=== PATIENT | male | born 1950 | race Caucasian/White ===

== ENCOUNTER → 2018-05-10 15:17 | Outpatient (CLI) | payer MEDICARE, OTHER | END | disposition home or self-care (01) | LOC: D.CT 15:17 | DX: I71.2 Thoracic aortic aneurysm, without rupture (principal) ==

== ENCOUNTER 2019-02-04 22:43 | Inpatient (IN) | payer MEDICARE, OTHER ==
[~2019-02-04] VITALS: Ht 195.6 cm; Wt 134.5 kg
--- NOTE | ~2019-02-04 | HEMODYNAMI ---
PATIENT:CARLIE CAMARA MEDICAL RECORD: [id number] : 50 [facility] ADMISSION DATE: 02/05/19 Generatedon:02/06/20199:56 Patient name: CARLIE CAMARA Patient #: [id number] SSN: DO B: 1950 Date of study: 02/06/2019 Page: Of Hemodynamic Procedure Report Patient Data Patient Demographics Procedure consent was obtained First Name: CARLIE Gender: Male Last Name: JAX : 1950 Middle Initial: M Age: 68 year(s) Patient #: [id number] Race: Unknown Additional ID: [id number] Contact details [address]: [address] [place] [address] [place] State: [place] City: [place] Zip code: [address] Past Medical History Allergies Allergen Reaction Date Comments Reported Sulfa drugs 02/06/2019 Antibiotics 02/06/2019 Admission Admission Data Admission Date: 02/05/2019 Admission Time: 0:36 Admit Source: Other Room #: D.2107 Weight (lbs.): 297 Weight (kg.): 134.72 Lab Results Lab Result Date: 02/06/2019 Lab Result Time: 0:00 Biochemistry Name Units Result Min Max BUN mg/dl 9 --(*---)-- 7 18 Creatinine mg/dl 0.8 --(-*--)-- 0.6 1.3 eGFR ml/min 90 --(*---)-- 90 120 AM eGFR ml/min 90 --(*---)-- 90 120 NONAFRICAN CBC Name Units Result Min Max Hemoglobin g/dl 13.6 --(*---)-- 13.5 17.5 Procedure Procedure Types Cath Procedure Diagnostic Procedure LHC LHC w/Coronaries w/Grafts PCI Procedure Coronary Stent Coronary Stent Initial Procedure Description Procedure Date Procedure Date: 02/06/2019 Procedure Start Time: 9:30 Procedure End Time: 9:52 Procedure Staff Name Function Wilbert Pool MD Performing Physician Joseluis Cabrera RT Monitor Mohit Leger RN Nurse Johnny Miguel RT Scrub Yecenia Mandujano RT Scrub Procedure Data Cath Procedure Fluoroscopy Diagnostic fluoroscopy Total fluoroscopy Time: 8.4 time: 8.4 min min Diagnostic fluoroscopy Total fluoroscopy dose: dose: 2168 mGy 2168 mGy Contrast Material Contrast Material Type Amount (ml) Isovue 370 205 Entry Location Entry Primary Successful Side Size Upsize Upsize Entry Closure Succes sful Closure Location (Fr) 1 (Fr) 2 (Fr) Remarks Device Remarks Femoral Right 6 Fr Exoseal artery Short Diagnostic catheters Device Type Used For End Catheter Placement MULTIPACK Pigtail 5 Fr LV Angiography catheter MULTIPACK JL 4.0 5Fr Left Coronary catheter Angiography DIAGNOSTIC JL 5 5Fr Left Coronary catheter ([id number]) Angiography MULTIPACK 3DRC 5Fr SVG Angiography catheter DIAGNOSTIC AR2 MOD 5 Fr SVG Angiography catheter ([id number]) Procedure Complications No complications Procedure Medications Medication Administration Route Dosage 0.9% NaCl I.V. 100 ml/hr Heparin Flush Bag added to field 2 bags (1000units/500ml NS) Oxygen etCO2 Nasal cannula 2 l/min Lidocaine 2% added to field 20 Versed I.V. 2 mg Fentanyl I.V. 100 mcg Versed I.V. 1 mg Versed I.V. 1 mg Heparin Bolus I.V. 5000 units Hemodynamics Rest HGB: 13.6 (g/dl) Heart Rate: 75 (bpm) Snapshots Pre Cath Intra NCS Post Cath Vital Signs Time Heart Resp SPO2 etCO2 NIBP (mmHg) Rhythm Pain Sedation Rate (ipm) (%) (mmHg) Status Level (bpm) 9:18:23 68 20 98 32.2 165/93(135) NSR 0 (11) 10(A) , No pain 9:22:47 69 16 98 28.4 157/86(139) NSR 0 (11) 10(A) , No pain 9:27:11 71 12 96 0 148/81(139) NSR 0 (11) 10(A) , No pain 9:31:29 85 14 97 32.9 152/87(134) NSR 0 (11) 10(A) , No pain 9:36:40 69 13 94 0 149/83(119) NSR 0 (11) 9(A) , No pain 9:40:59 75 18 97 36.7 153/87(125) NSR 0 (11) 9(A) , No pain 9:45:17 83 19 97 32.2 153/88(123) NSR 0 (11) 9(A) , No pain 9:49:31 83 18 98 34.5 163/91(133) NSR 0 (11) 10(A) , No pain Medications Time Medication Route Dose Verified Delivered Reason Notes Effectiveness by by 9:18:12 0.9% NaCl I.V. 100 Mohit Mohit Per physician ml/hr Africa Leger RN RN 9:18:39 Heparin Flush added 2 Mohit Mohit used for Bag to bags Africa Leger procedure (1000units/500ml field RN RN NS) 9:19:23 Oxygen etCO2 2 Mohit Mohit for low 02 sats Nasal l/min Africa Leger cannula RN RN 9:19:38 Lidocaine 2% added 20ml Mohit Mohit for local to vial Africa Leger anesthetic field RN RN 9:20:36 Versed I.V. 2 mg Mohit Mohit for sedation Africa Leger RN RN 9:20:45 Fentanyl I.V. 100 Mohit Mohit for sedation mcg Africa Leger RN RN 9:27:42 Versed I.V. 1 mg Mohit Mohit for sedation Africa Leger RN RN 9:29:24 Versed I.V. 1 mg Mohit Mohit for sedation Africa Leger RN RN 9:39:25 Heparin Bolus I.V. 5000 Mohit Mohit for units Africa Leger anticoagulation RN special events assistant Log Time Note 8:45:59 Mohit Leger RN sent for patient. Start room use. 8:58:36 Admit Source: Other 8:59:43 Procedure status Elective 9:00:35 Lab Result : Hemoglobin 13.6 g/dl 9:00:35 Lab Result : BUN 9 mg/dl 9:00:35 Lab Result : eGFR NONAFRICAN 90 ml/min 9:00:35 Lab Result : Creatinine 0.8 mg/dl 9:00:35 Lab Result : eGFR AM 90 ml/min 9:07:29 Patient Weight : 297 lbs 9:07:34 Time tracking: Regular hours (M-F 7:00 - 5:00) 9:07:38 Patient received from Med II to CCL 2 Alert and oriented. Tansferred to table in Supine position. 9:07:41 Signed procedure consent form obtained from patient. 9:07:43 Warm blankets applied, and louise hugger turned on for patient comfort. 9:07:43 Correct patient and procedure confirmed by team. 9:07:51 ECG and BP/O2 sat monitors applied to patient. 9:17:11 Baseline sample Acquired. 9:17:11 Vital chart was started 9:17:14 Rhythm: sinus rhythm 9:17:15 Full Disclosure recording started 9:17:33 H&P Date Dictated: 02/05/2019 Within 30 days and on chart.. 9:17:34 Pre-procedure instructions explained to patient. 9:17:35 Pre-op teaching completed and patient verbalized understanding. 9:17:39 Family in patients room. 9:17:40 Patient NPO since Midnight. 9:17:50 Patient allergic to Sulfa drugs 9:18:03 Patient allergic to Antibiotics 9:18:05 Is the patient allergic to Iodine/contrast media? No. 9:18:12 0.9% NaCl 100 ml/hr I.V. was administered by Mohit Leger RN; Per physician; 9:18:17 Is patient on blood thinner?Yes 9:18:22 ACC The patient was administered the following blood thiners within the last 24 hours: ACCPlavix 9:18:33 pt was loaded 9:18:36 Patient diabetic? No. 9:18:38 If diabetic: On Metformin? No 9:18:39 Heparin Flush Bag (1000units/500ml NS) 2 bags added to field was administered by Mohit Leger RN; used for procedure; 9:18:39 ----Pre-sedation anethsthesia assessment.---- 9:18:41 Previous problem with sedation/anesthesia? No ? 9:18:43 Snore? Yes 9:18:45 Sleep apnea? No 9:18:46 Deviated septum? No 9:18:51 Opens mouth fully? Yes 9:18:53 Sticks out tongue? Yes 9:19:01 Airway obstruction? No ? 9:19:03 Dentures? No ? 9:19:05 Pre procedure: right dorsailis pedis pulse 2+ Normal; easily identifiable; not easily obliterated 9:19:08 Patient pain scale 0/10 ?. 9:19:15 IV patent on arrival in right forearm with 0.9% NaCl at KVO. 9:19:22 Lab results completed and on chart. 9:19:23 Oxygen 2 l/min etCO2 Nasal cannula was administered by Mohit Leger RN; for low 02 sats; 9:19:26 Right groin area was prepped with chlora-prep and draped in sterile fashion 9:19:27 Alarms reviewed by R. N. 9:19: Sharps counted by scrub and verified by R.N. 9:19:32 Physician arrived 9::33 --------ALL STOP TIME OUT------ 9::33 Final Timeout: patient, procedure, and site verified with staff and physician. All members of the team are in agreement. 9:19:36 Right groin site verified by team. 9:19:38 Lidocaine 2% 20ml vial added to field was administered by Mohit Leger RN; for local anesthetic; 9:19:39 Fire Safety Assessment: A--An alcohol-based skin anteseptic being used preoperatively., C--Open oxygen or nitrous oxide is being used., D--An ESU, laser, or fiber-optic light is being used. 9:19:43 Physical assessment completed. ASA score P 2 - A patient with mild systemic disease as per Wilbert Pool MD. 9:19:46 1) 90+ Normal kidney functon but urine findings or structural abnormalities or genetic trait point to kidney disease. 9:19:52 Maximum allowable contrast does (3.7 X eGFR X 0.75)249.75 ml. 9:19:57 Sedation plan: IV Moderate Sedation Medication:Versed, Fentanyl 9:20:15 Use device set Femoral Dx 9:20:17 ACIST Syringe (48804) opened to sterile field. 9:20:18 Bag Decanter (2002) opened to sterile field. 9:20:18 Medline Cath Pack ([id number]) opened to sterile field. 9:20:20 ACIST Hand Control (08579) opened to sterile field. 9:20:20 ACIST Manifold (86838) opened to sterile field. 9:20:21 DIAGNOSTIC Multipack 5Fr catheter set (AM9766) opened to sterile field. 9:20:23 Tegaderm 4 x 4 (1626W) opened to sterile field. 9:20:28 EMERALD Guide Wire (502-490) opened to sterile field. 9:20:34 SHEATH 6FR [place] (VLS346) opened to sterile field. 9:20:36 Versed 2 mg I.V. was administered by Mohit Leger RN; for sedation; 9:20:45 Fentanyl 100 mcg I.V. was administered by Mohit Leger RN; for sedation; 9:27:42 Versed 1 mg I.V. was administered by Mohit Leger RN; for sedation; 9:29:21 Procedure started. 9:29:24 Versed 1 mg I.V. was administered by Mohit Leger RN; for sedation; 9:30:59 Local anesthetic to right femoral artery with Lidocaine 2% by Wilbert Pool MD.INITIAL ACCESS ONLY 9:31:07 A 6 Fr Short sheath was inserted into the Right Femoral artery 9:31:33 A MULTIPACK Pigtail 5 Fr catheter was advanced over the wire and used for LV Angiography. 9:31:36 LV angiography performed. 9:31:43 EF : 55 % 9:31:47 LV gram done using MAHMOOD 9:31:49 Catheter removed. 9:31:55 A MULTIPACK JL 4.0 5Fr catheter was advanced over the wire and used for Left Coronary Angiography. 9:32:06 Zero performed for pressure channel P1 9:32:19 Catheter removed. 9:32:39 A DIAGNOSTIC JL 5 5Fr catheter ([id number]) was advanced over the wire and used for Left Coronary Angiography. 9:32:44 LCA angiography performed. 9:33:40 Catheter removed. 9:33:55 INFLATOR Merit BasixCompak (YN8452) opened to sterile field. 9:34:03 CHOICE PT Extra Support 182cm wire ([id number]) opened to sterile field. 9:36:01 A MULTIPACK 3DRC 5Fr catheter was advanced over the wire and used for SVG Angiography. 9:36:24 TYLER to LAD angiography performed. 9:36:26 Catheter removed. 9:36:32 A DIAGNOSTIC AR2 MOD 5 Fr catheter (720649C) was advanced over the wire and used for SVG Angiography. 9:36:43 SVG to OM angiography performed. 9:37:16 SVG to RCA angiography performed. 9:37:36 RCA angiography performed. 9:38:19 SVG to Ramus angiography performed. 9:38:20 Catheter removed. 9:38:49 Pre PCI Site: Vein Graft Ramus has 99% stenosis. 9:39:02 GUIDE 6FR EBU 4.5 catheter ([id number]) opened to sterile field. 9:39:25 Heparin Bolus 5000 units I.V. was administered by Mohit Leger RN; for anticoagulation; 9:39:28 6 Fr EBU 4.5 guide catheter was inserted over the wire 9:39:42 Procedure type changed to Cath procedure, Diagnostic procedure, LHC, LHC w/Coronaries w/Grafts, PCI procedure, Coronary Stent, Coronary Stent Initial 9:39:54 CPTES wire advanced. 9:40:41 Wire removed. 9:41:50 FIELDER XT J 300cm guide wire ([id number]) opened to sterile field. 9:42:09 FIELDER wire advanced. 9:44:05 Inflate balloon Inflation number: 1 A EMERGE OTW 1.5 x 15 balloon ([id number]) was prepped and advanced across the Ramus 99, then inflated to 21 KETAN for 0:06 (min:sec) . 9:44:39 Stent catheter was removed intact over wire. 9:46:12 Balloon removed over the wire. 9:46:33 Inflate balloon Inflation number: 2 A EUPHORA 2.5 x 30 Balloon ([id number]) was prepped and advanced across the Ramus , then inflated to 23 KETAN for 0:14 (min:sec) . 9:46:49 Inflation number: 3 The EUPHORA 2.5 x 30 Balloon ([id number]) was reinflated across the Ramus , to 23 KETAN for 0:10 (min:sec) . 9:46:55 Balloon removed over the wire. 9:48:29 Place stent Inflation Number: 4 A KEREN RX 2.5 x 38 stent ([id number]) was prepped and advanced across the Ramus . The stent was deployed at 15 KETAN for 0:15 (min:sec) 0. 9:48:55 EXOSEAL 6Fr (EX600) opened to sterile field. 9:49:03 Stent catheter was removed intact over wire. 9:49:03 Wire removed. 9:49:04 Guide catheter removed. 9:49:12 Contrast amount:Isovue 370 205ml. 9:49:21 Sheath removed intact; hemostasis achieved with Exoseal to the Right Femoral artery. 9:49:23 Procedure ended.(Physican Out) 9:49:35 Fluoroscopy time 08.40 minutes. 9:49:42 Fluoroscopy dose: 2168 mGy 9:49:42 Flurop Dose total: 2168 9:49:43 Sharps counted by scrub and verified by R.N. 9:49:46 Insertion/operative site no bleeding no hematoma. 9:49:51 Post-op/insertion site Right Femoral artery dressed using a 4 x 4 and Tegaderm. 9:49:55 Post right femoral artery:stable 9:49:56 Post Procedure Pulses reassessed and unchanged 9:49:58 Post procedure: right dorsailis pedis pulse 2+ Normal; easily identifiable; not easily obliterated. 9:50:03 Post procedure rhythm: sinus rhythm 9:50:05 Post procedure instruction explained to patient.Patient verbalizes understanding. 9:50:06 Procedure and supply charges have been captured, reviewed, submitted and are correct. 9:50:38 Procedure Complication : No complications 9:52:02 Vital chart was stopped 9:52:03 See physician's report for complete and final results. 9:52:06 Report given to PCU. 9:52:10 Patient transfered to PCU with Bed. 9:52:12 Procedure ended. 9:52:12 Full Disclosure recording stopped 9:52:18 ACC-PCI Only Patient was given prescriptions, or instructed by Wilbert Pool MD to start/continue the following medications upon discharge: Plavix 9:52:20 End room use (Document Last) Intervention Summary Intervention Notes Time ActionType Lesion and Equipment Used Action# Pressure Duration Attributes 9:44:05 Inflate Ramus EMERGE OTW 1.5 1 21 00:06 balloon x 15 balloon ([id number]) 9:46:33 Inflate Ramus EUPHORA 2.5 x 2 23 00:14 balloon 30 Balloon ([id number]) 9:46:49 Reinflate Ramus EUPHORA 2.5 x 3 23 00:10 balloon 30 Balloon ([id number]) 9:48:29 Place stent Ramus KEREN RX 2.5 x 4 15 00:15 38 stent ([id number]) Device Usage Item Name Manufacture Quantity Catalog Number Hospital Part Current Minimal Lot# / Charge Number Stock Stock Serial# Code ACIST Syringe Acist 1 49419 606644 455681 642675 20 (16176) Medical Systems Inc Bag Decanter Microtek 1 2001S 996574 38053 725183 5 () Medical Inc. Medline Cath Medline 1 [id number] 051717 01868 901268 5 Pack ([id number]) ACIST Hand Acist 1 04831 969836 372653 163937 5 Control Medical (88911) Systems Inc ACIST Manifold Acist 1 78846 040316 643966 087282 5 (02085) Medical Systems Inc DIAGNOSTIC Cardinal 1 MH2060 260001 01165 396923 30 Multipack 5Fr Health catheter set (QS2323) Tegaderm 4 x 4 3M 1 1626W 737714 238291 737202 5 (1626W) EMERALD Guide Cardinal 1 502-455 765822 003569 857500 5 Wire (502-455) Health SHEATH 6FR Terumo 1 GSW231 663822 769988 143813 40 [place] (ZQS494) MULTIPACK Cardinal 1 213707 5 Pigtail 5 Fr Health catheter MULTIPACK JL Cardinal 1 684560 5 4.0 5Fr Health catheter DIAGNOSTIC JL Cardinal 1 [id number] 451305 843238 961578 5 5 5Fr catheter Health (531866V) INFLATOR Merit Merit 1 YG1334 813739 502921 847828 15 KidboxinDataPop (CX7987) CHOICE PT [place] 1 [id number] 132420 930059 799807 5 Extra Support Scientific 182cm wire (1703045O4) MULTIPACK 3DRC Cardinal 1 233456 5 5Fr catheter Health DIAGNOSTIC AR2 Cardinal 1 [id number] 745380 567805 323633 20 MOD 5 Fr Health catheter (818690I) GUIDE 6FR EBU Medtronic 1 [id number] 188363 09683 002947 0 4.5 catheter (HS7PQW65) FIELDER XT J Hsieh 1 [id number] 307235 548971 332235 5 300cm guide Vascular wire ([id number]) EMERGE OTW 1.5 [place] 1 [id number] 607474 542141 182708 5 [id number] x 15 balloon Scientific ([id number]) EUPHORA 2.5 x Medtronic 1 [id number] 336896 555081 081467 5 [id number] 30 Balloon ([id number]) KEREN RX 2.5 x Medtronic 1 [id number] 863862 0109130 913082 5 [id number] 38 stent ([id number]) EXOSEAL 6Fr Cardinal 1 EX600 764373 788061 565258 10 (EX600) Health Signature Audit [place] Stage Time Signature Unsigned Intra-Procedure 02/06/2019 Joseluis Cabrera RT(R) 9:56:02 AM Signatures Performing Physician : Signature : Wilbert Pool MD Date : Time : Monitor : Joseluis Cabrera RT Signature : Date : Time : Nurse : Mohit Leger Signature : RN Date : Time : [facility] [address] [facility] [address]
--- NOTE | ~2019-02-04 | CN ---
PATIENT NAME:CARLIE GARBER MEDICAL RECORD: [id number] : 50 LOCATION:D. D.2107 ADMIT DATE: 02/05/19 ACCOUNT: [id number] CONSULTING PHYSICIAN: OCTAVIO PICKARD MD REFERRING PHYSICIAN: EPHRAIM SAMANO MD DATE OF CONSULTATION: 02/05/2019 CARDIOLOGY CONSULT DIAGNOSES: 1. Non-Q-wave myocardial infarction. 2. Coronary artery disease. 3. Status post coronary bypass graft surgery. 4. Shortness of breath and dyspnea on exertion. 5. Hypertension. 6. Hyperlipidemia. HISTORY OF PRESENT ILLNESS: Mr. Garber presents with anginal chest discomfort as well as shortness of breath and dyspnea on exertion. It has been going on for 2 days, progressing in an unstable fashion. He did rule in for non-Q-wave myocardial infarction. He has a past history of coronary artery disease and coronary bypass graft surgery in 2000, 5 vessels. PHYSICAL EXAMINATION: GENERAL APPEARANCE: Well-nourished, well-developed, appears stated age. Level of distress, comfortable. PSYCHIATRIC: Mental status, alert, normal affect. Orientation, oriented to time, place and person. EYES: Lids and conjunctiva, noninjected. No discharge, no pallor. ENT: Lips, teeth, gums, normal dentition. Oropharynx, no cyanosis, no pallor. NECK: Carotid arteries, bilateral normal upstroke, no bruits, no thrills. JUGULAR VEINS: No jugular venous pressure or distention. CERVICAL LYMPH NODES: Nontender, nonenlarged. THYROID: Not enlarged. Nontender. No nodules. LUNGS: Respiratory effort, unlabored. CHEST: Normal curvature. No thoracic deformity. No chest wall tenderness. Percussion, resonant. Auscultation, clear. No wheezes, no rales, no rhonchi. CARDIOVASCULAR: Precordial exam, nondisplaced. No heaves or pericardial thrills. Rate and rhythm, regular. Heart sounds, normal S1, normal S2. No S3, no gallop, no rub. Systolic murmur, not heard. Diastolic murmur, not heard. EXTREMITIES: No cyanosis, no edema. Peripheral pulses, full and equal in all extremities, except as noted. No bruits appreciated. ABDOMEN: Soft, nondistended. Normal aorta. No bruit. Nontender. No masses. Liver, nontender, no hepatomegaly. Spleen, nontender, no splenomegaly. MUSCULOSKELETAL: No joint tenderness. No joint swelling. No erythema. NEUROLOGICAL: Normal gait, normal strength, normal tone. SKIN: Warm and dry. OVERALL IMPRESSION: Non-Q-wave myocardial infarction. At this time, his heart rate is in 50s. On his current medications, we will add long-acting nitrate to his medical regimen to optimize his medical therapy as he as well is already on a calcium channel gissel and an LUIS receptor gissel. Proceed with coronary angiography with continued symptomatology. TRANSINT:[id number] Voice Confirmation ID: [id number] DOCUMENT ID: [id number] CONSULT REPORT [id number] CARLIE GARBER JEFFREY MD CC: [id number] DICTATION DATE: 02/05/19 111 MEDIA OPERATOR: 02/05/[address] [facility] [address] [place] [address]
--- NOTE | ~2019-02-04 | EC ---
PATIENT:CARLIE CAMARA DATE OF SERVICE: 02/05/19 SEX: M MEDICAL RECORD: [id number] DATE OF : 50 LOCATION:D.M2 D.210 AGE OF PATIENT: 68 ADMISSION DATE: 02/05/19 REFERRING PHYSICIAN: INTERPRETING PHYSICIAN: OCTAVIO POOL MD ECHOCARDIOGRAM REPORT ECHO CHARGES 4 ECHO COMPLETE Date: 02/05/19 CLINICAL DIAGNOSIS: RI ECHOCARDIOGRAPHIC MEASUREMENTS (adult normal given) AC root (d.<3.7cm) 4.9 cm LV Septum d (<1.2 cm> 1.4 cm Valve Excursion 2.8 cm LV Septum (systole) 1.9 cm Left Atria (s.<4.0cm> 4.1 cm LVPW d(<1.2cm) 1.3 cm RV (d.<2.3cm) 2.9 cm LVPW (sytole) 1.7 cm LV diastole(<5.6CM) 6.3 cm MV E-F(>70mm/sec) cm LV systole 4.6 cm LVOT Diameter 2.5 cm MV exc.(>10mm) cm Est.ejection fraction (50-75%) % DOPPLER: LVIT cm/sec A 82.0 cm/sec E 107 cm/sec LA cm/sec RVSP 30.0 mmHg LVOT 138 cm/sec AOP1/2T m/s Asc. Ao 138 cm/sec RVOT 37.0 cm/sec RA cm/sec PA 74.0 cm/sec AV Gradient Peak 7.6 mmHg AV Mean 4.0 mmHg AV Area 4.1 cm MV Gradient Peak 8.4 mmHg MV Mean 2.1 mmHg MV Area cm COMMENTS: Lath Tier: Gladys BAEZOE Mallet Cutter: 1 Dr. Pool TAPE# PACS Pericardial Effusion N DATE OF SERVICE: 02/06/2019 FINDINGS: 1. Left ventricular chamber size is mildly dilated. Left ventricular systolic function is preserved at 55%. 2. Left atrium is enlarged at 4.1 cm. Right atrium and right ventricular chamber sizes are as well mildly dilated. 3. Valvular structures have normal structure and motion. 4. Doppler interrogation reveals mild plus aortic insufficiency, mild mitral regurgitation, auuh-yg-auxmzqig tricuspid regurgitation, no other valvular ECHOCARDIOGRAM REPORT [id number] CARLIE CAMARA insufficiency or stenosis. Pulmonary systolic pressure is estimated at 30 mmHg. 5. No evidence of pericardial effusion or left ventricular thrombus. TRANSINT:[id number] Voice Confirmation ID: [id number] DOCUMENT ID: [id number] OCTAVIO POOL MD CC: [id number] DICTATION DATE: 02/06/19921 SUPPLY ASSISTANT: 02/06/19940 ADM IN [facility] [address] [place] [address]
--- NOTE | ~2019-02-04 | OP ---
PATIENT NAME: CARLIE CAMARA MEDICAL RECORD: [id number] :50 LOCATION:D.M2 D.2107 ADMISSION DATE:02/05/19 SURGEON: OCTAVIO PICKARD MD DATE OF OPERATION: 02/06/2019 PROCEDURES: 1. PTCA stent ramus intermedius. 2. Left heart catheterization. 3. Selective coronary angiography. 4. Vein graft angiography. 5. TYLER angiography. INDICATION: Non-Q-wave myocardial infarction. DESCRIPTION OF PROCEDURE: After informed consent was obtained and after a detailed description of the risks, benefits as well as alternative therapies, the patient elected to proceed with angiogram and angioplasty. The right femoral area was prepped and draped in normal sterile fashion. Right femoral artery was cannulated via modified Seldinger technique with placement of 6-Bhutanese sheath. All catheters exchanged through this sheath. FINDINGS: Left ventriculogram was performed in standard 30-degree MAHMOOD view, reveals good cardiac wall motion, ejection fraction 55%. SELECTIVE CORONARY ANGIOGRAPHY: 1. Left main is with no significant angiographic disease. 2. Left anterior descending is totally occluded. 3. Left circumflex has a large ramus intermedius that has 95% stenosis throughout the proximal vessel. 4. Left circumflex is then totally occluded. 5. Right coronary artery is totally occluded. 6. TYLER to the LAD is widely patent. Distal LAD is widely patent. 7. Vein graft to the circumflex ramus intermedius is closed. 8. Vein graft to the circumflex is widely patent. Distal circumflex is small and diffusely diseased widely patent. 9. Vein graft to the RCA is patent. Distal RCA is small and diffusely diseased, but widely patent. HASHER MACHINE OPERATOR STENT OF THE [place] RAMUS INTERMEDIUS: The stent used was a 2.5 x 38 mm Wiley. Result was 0% residual stenosis. OVERALL IMPRESSION: Successful percutaneous transluminal coronary angioplasty stent of the ramus intermedius going from 95% initial stenosis to 0% residual. TRANSINT:[id number] Voice Confirmation ID: [id number] DOCUMENT ID: [id number] OCTAVIO PICKARD MD CC: [id number] DICTATION DATE: 02/06/19 0956 UNDERGRADUATE INTERNSHIP: 02/06/19 1055 ADM IN [facility] [id number] [place] [address]
[2019-02-04] MEDS ORDERED: LIPITOR20 MG PO (22:50)
[2019-02-04] MEDS ORDERED: NORVASC10 MG PO (22:50)
[2019-02-04] MEDS ORDERED: BAYER CHEWABLE81 MG PO (22:50)
[2019-02-04] MEDS ORDERED: COZAAR100 MG PO (22:50)
[2019-02-04] MEDS ORDERED: VITAMIN B-12100 MCG PO (22:51)
[2019-02-04] MEDS ORDERED: MULTI-DAY VITAM1 TAB PO (22:51)
[2019-02-04] MEDS ORDERED: CLARITIN 10 MG10 MG PO (22:51)
[2019-02-04] MEDS ORDERED: MOBIC7.5 MG PO (22:51)
[2019-02-04] MEDS ORDERED: TEMAZEPAM30 MG PO (22:51)
[2019-02-04] MEDS ORDERED: ZYLOPRIM300 MG PO (22:52)
[2019-02-04] MEDS ORDERED: MELATONIN10 M1 PO (22:52)
[2019-02-04] MEDS ORDERED: FUROSEMIDE40 MG PO (22:52)
[2019-02-04] MEDS ORDERED: MERIBIN5 MG PO (22:52)
[2019-02-04 23:17] LABS: BASOPHILS 0.5 % (0-2); EOSINOPHILS 5.4 % (0-7); HEMATOCRIT 41.6 % (42.0-54.0); HEMOGLOBIN 14.6 g/dL (13.5-17.5); IMMATURE GRANULOCYTES 0.2 % (0-5); LYMPHOCYTES 25.9 % (15-50); MCH 30.7 pg (26.0-34.0); MCHC 35.1 g/dL (31.0-37.0); MCV 87.6 fL (80.0-100.0); MEAN PLATELET VOLUME 11.2 fL (7.4-10.4); MONOCYTES 10.3 % (2-11); NEUTROPHILS 57.7 % (40-80); PLATELET COUNT 151 10x3/uL (130-400); RBC 4.75 10x6/uL (4.20-6.10); RDW 12.4 % (11.5-14.5); WBC 9.5 10x3/uL (4.8-10.8)
[2019-02-04 23:36] LABS: INR 1.12 (0.85-1.17); PROTIME 13.9 SECONDS (11.6-15.0)
[2019-02-04 23:37] LABS: APTT 27.1 SECONDS (22.8-39.4)
[2019-02-04 23:38] LABS: ALBUMIN 3.6 g/dL (3.4-5.0); ALKALINE PHOSPHATASE 71 U/L (46-116); ALT (SGPT) 25 U/L (10-68); BILIRUBIN - TOTAL 0.31 mg/dL (0.2-1.3); CALC OSMOLALITY 281 mosm/kg (275-300); CALCIUM 8.6 mg/dL (8.5-10.1); CARBON DIOXIDE 26.6 mmol/L (21.0-32.0); CHLORIDE - SERUM 106 mmol/L (98-107); CREATININE - SERUM 0.9 mg/dL (0.6-1.3); GLUCOSE 131 mg/dL (74-106); POTASSIUM - SERUM 3.8 mmol/L (3.5-5.1); PROTEIN - SERUM 7.1 g/dL (6.4-8.2); SODIUM 139 mmol/L (136-145); UREA NITROGEN 18 mg/dL (7-18); eGFR NON AFRICAN AMERICAN 89 mL/min (90-120)
[2019-02-04 23:42] VITALS: BP 152/80
[2019-02-04 23:49] LABS: CKMB 2.1 U/L (0.0-3.6); CREATINE KINASE 82 UL (21-232); MAGNESIUM - SERUM 2.2 mg/dL (1.8-2.4)
[2019-02-04 23:50] LABS: TROPONIN-I < 0.017 ng/mL (0.000-0.060)
[2019-02-04 23:59] VITALS: BP 151/74
--- NOTE | 2019-02-05 00:33 | NUR ---
PATIENT REFUSES TO ALLOW LAB TO DRAW BLOOD
--- NOTE | 2019-02-05 01:13 | NUR ---
PT REQUESTING HIS TEMAZEPAM TO HELP HIM SLEEP TONIGHT. DR. MARTINEZ MADE AWARE. ORDER PUT IN.
--- NOTE | 2019-02-05 01:35 | NUR ---
PT ARRIVED VIA W/C. NO DISTRESS NOTED.
[2019-02-05 01:47] VITALS: BP 156/74; BMI 34.9
--- NOTE | 2019-02-05 01:54 | NUR ---
I have reviewed this patient and I concur with the Shift Assessment completed by the Licensed Practical Nurse today this shift.
--- NOTE | 2019-02-05 02:18 | NUR ---
ADMISSION ASSESSMENT, HISTORY AND HOME MED LIST COMPLETED. PT DENIES ANY CP . STATES HAS MILD SOB. VSS. SR PER CM HR 64. O2 2LNC. LUNGS DIMINISHED IN BASES BILAT. ALERT AND ORIENTED TO PERSON, PLACE AND TIME. URRUTIA. IV TO R HAND WITH NS AT 75CC/HR. IV PATENT. AT BEDSIDE. SR UP X2, CALL LIGHT WITHIN REACH. NON SLIP SOCKS ON.
--- NOTE | 2019-02-05 04:04 | NUR ---
PT RESTING WITH EYES CLOSED. RESP EVEN AND REGULAR. SR UP X2, CALL LIGHT WITHIN REACH.
[2019-02-05 04:30] VITALS: BP 145/64
[2019-02-05 05:45] LABS: CKMB 2.4 U/L (0.0-3.6); CREATINE KINASE 58 UL (21-232)
[2019-02-05 05:47] LABS: TROPONIN-I 0.079 ng/mL (0.000-0.060)
--- NOTE | 2019-02-05 06:30 | NUR ---
VS THIS AM. SR PER CM. PT DENIED ANY DISCOMFORT. NEEDS MET; WILL CONTINUE TO MONITOR.
--- NOTE | 2019-02-05 07:12 | NUR ---
PT AWAKE AND ORIENTED, AT BEDSIDE. PT UNDERSTANDS HE'S NPO UNTIL HE SPEAKS TO DR. PICKARD. NO COMPLAINTS OF CHEST PAIN THIS MORNING, CL IN REACH, SRX2.
[2019-02-05 12:31] LABS: CKMB 5.2 U/L (0.0-3.6); CREATINE KINASE 74 UL (21-232)
--- NOTE | 2019-02-05 12:40 | NUR ---
I have reviewed this patient and I concur with the Shift Assessment completed by the Licensed Practical Nurse today this shift.
[2019-02-05 12:59] VITALS: Ht 195.6 cm; Wt 134.5 kg
[2019-02-05 16:40] LABS: CREATINE KINASE 79 UL (21-232); TROPONIN-I 0.702 ng/mL (0.000-0.060)
[2019-02-05 18:31] VITALS: BP 151/73
[2019-02-05 20:00] VITALS: BP 149/75
--- NOTE | 2019-02-05 21:36 | NUR ---
INITAIL ROUNDS COMPLETED AT 1915 HRS. PT DENIES ANY DISCOMFORT. ASSESSMENT COMPLETED AT 1940 HRS. VSS. SB PER CM HR 56. PT IS ALERT AND ORIENTED TO PERSON, PLACE AND TIME. URRUTIA. IV TO R HAND WITH NS AT 75CC/HR. IV PATENT. LUNGS DIMINISHED IN BASES BILAT. PM MEDS GIVEN. EXPLAINED NPO AFTER MIDNIGHT. PT STATED UNDERSTANDING. FAMILY AT BEDSIDE AT THIS TIME. SR UP X2, CALL LIGHT WITHIN REACH.
[2019-02-06] VITALS: BP 148/62
--- NOTE | 2019-02-06 00:21 | NUR ---
PT RESTING WITH EYES CLOSED. RESP EVEN AND REGULAR. SR UP X2, CALL LIGHT WITHIN REACH.
--- NOTE | 2019-02-06 02:32 | NUR ---
PT RESTING WITH EYES CLOSED. RESP EVEN AND REGULAR. SR UP X2, CALL LIGHT WITHIN REACH.
--- NOTE | 2019-02-06 03:42 | NUR ---
PT AWAKE; DENIES ANY DISCOMFORT. STATES FEELS NERVOUS ABOUT AM LHC. EMOTIONAL SUPPORT GIVEN. CALL LIGHT WITHIN REACH.
[2019-02-06 04:30] VITALS: BP 143/65
[2019-02-06 04:59] LABS: APPEARANCE CLEAR (CLEAR); COLOR YELLOW (YELLOW); SPECIFIC GRAVITY 1.015 (1.005-1.020)
[2019-02-06 05:00] LABS: BILIRUBIN NEGATIVE (NEGATIVE); GLUCOSE NEGATIVE (NEGATIVE); KETONE NEGATIVE (NEGATIVE); NITRITE NEGATIVE (NEGATIVE); PROTEIN NEGATIVE (NEGATIVE); UROBILINOGEN NORMAL (NORMAL)
--- NOTE | 2019-02-06 06:10 | NUR ---
VSS THROUGHOUT NIGHT. SB/SR PER CM . PT DENIED ANY PAIN OR SOB. PT IN SHOWER AT THIS TIME. BED LINENS CAHNGED. NEEDS MET;WILL CONTINUE TO MONITOR.
[2019-02-06 06:47] LABS: BASOPHILS 0.4 % (0-2); EOSINOPHILS 5.9 % (0-7); HEMATOCRIT 38.9 % (42.0-54.0); HEMOGLOBIN 13.6 g/dL (13.5-17.5); IMMATURE GRANULOCYTES 0.2 % (0-5); LYMPHOCYTES 21.1 % (15-50); MCH 30.8 pg (26.0-34.0); MEAN PLATELET VOLUME 11.5 fL (7.4-10.4); MONOCYTES 12.1 % (2-11); NEUTROPHILS 60.3 % (40-80); PLATELET COUNT 139 10x3/uL (130-400); RBC 4.42 10x6/uL (4.20-6.10); RDW 12.5 % (11.5-14.5)
[2019-02-06 06:49] LABS: ALBUMIN 3.2 g/dL (3.4-5.0); ALKALINE PHOSPHATASE 61 U/L (46-116); ALT (SGPT) 24 U/L (10-68); BILIRUBIN - TOTAL 0.47 mg/dL (0.2-1.3); CALC OSMOLALITY 284 mosm/kg (275-300); CALCIUM 8.3 mg/dL (8.5-10.1); CARBON DIOXIDE 26.1 mmol/L (21.0-32.0); CHLORIDE - SERUM 109 mmol/L (98-107); CREATININE - SERUM 0.8 mg/dL (0.6-1.3); GLUCOSE 119 mg/dL (74-106); POTASSIUM - SERUM 3.7 mmol/L (3.5-5.1); PROTEIN - SERUM 6.4 g/dL (6.4-8.2); SODIUM 143 mmol/L (136-145); UREA NITROGEN 9 mg/dL (7-18); eGFR NON AFRICAN AMERICAN > 90 mL/min (90-120)
--- NOTE | 2019-02-06 07:19 | NUR ---
REPORT RECEIVED. WILL CONTINUE WITH POC. PT CURRENTLY SITTING IN CHAIR. CALL LIGHT W/I REACH. AT BEDSIDE. PT IS AAO AND UP AD MONA. RR EVEN AND UNLABORED ON 2L 02. NS INFUSING @75ML/HR VIA R.HAND PIV. PT DENIES ANY NEEDS AT THIS TIME. WILL CTM.
--- NOTE | 2019-02-06 09:04 | NUR ---
PT PREOPED AND TRANSFERED TO VASCULAR TECHNICIAN. WILL CTM.
--- NOTE | 2019-02-06 10:24 | NUR ---
PT RETURNED FROM LENS GRINDING MACHINE OPERATOR. RIGHT FEMORAL CATH SITE IS C/D/I. PERIPHERAL PULSES BILATERALLY EVEN AND STRONG. NO S/S OF HEMATOMA PRSENT. PT IS AAO AND DENIES ANY NEEDS. PT WILL REMAIN FLAT FOR 4 HOURS. NS INFUSING @100ML/HR VIA R.HAND POIV. WILL CTM.
[2019-02-06] MEDS ORDERED: PLAVIX75 MG PO (12:16)
--- NOTE | 2019-02-06 12:47 | NUR ---
PT DEVELOPED HEMATOMA TWO HOURS POST HEART CATH. LIBRARIAN SPECIALIST CAME AND PLACED FEMSTOP ON RIGHT FEM CATH SITE. ANIA MONITORING AND AWARE OF SITUATION. WILL CLOSELY MONITOR PT. WILL CTM.
--- NOTE | 2019-02-06 13:46 | NUR ---
I have reviewed this patient and I concur with the Shift Assessment completed by the Licensed Practical Nurse today this shift.
--- NOTE | 2019-02-06 13:59 | NUR ---
FEMSTOP REPOSITIONED BY ANIA FROM LIBERAL ARTS TEACHER. HEMATOMA IS DECREASING IN SIZE. VSS AND WNL. PT DENIES ANY NEEDS. WILL CTM.
--- NOTE | 2019-02-06 15:32 | NUR ---
FEM STOP REMOVED. HEMATOMA DRASTICALLY REDUCED IN SIZE AND SOFT. PIV REMOVED WITH CATHETER TIP FULLY INTACT. PT SIGNED PROPER DISCHARGE INSTRUCTIONS AND REMOVED ALL VALUABLES FROM THE ROOM. TELEMTRY REMOVED AND RETURNED.
--- NOTE | 2019-02-06 16:01 | MORECARE ---
CASE MANAGEMENT DISCHARGE SUMMARY PATIENT: CARLIE CAMARA UNIT: [id number] ADM DATE: 02/05/19 AGE: 68 : 50 SEX: M ROOM/BED: D.2107 AUTHOR: MEKHI MENA PHYSICIAN: REFERRING PHYSICIAN: EPHRAIM SAMANO MD DATE OF SERVICE: 02/06/19 Discharge Plan Patient Name: CARLIE CAMARA [facility] [facility] 1950 Planned Disposition: Home Anticipated Discharge Date: 02/06/19 Discharge Date: 02/06/2019 Expected LOS: 1 Initial Reviewer: [email or web address] Initial Review Date: 02/06/2019 Generated: 02/06/19 5:00 pm Patient Name: CARLIE CAMARA Page [id number] at 1601 All edits/amendments must be made on the electronic document DICTATION DATE: 02/06/19 1600 SPRAY RIG OPERATOR: DARRIN 02/06/19 1600 RPT#: [id number] DC DATE:02/06/19 STATUS: DIS IN [facility] [address] [place] [address] END OF REPORT
--- NOTE | 2019-02-06 16:09 | MORECARE ---
CASE MANAGEMENT DISCHARGE SUMMARY PATIENT: CARLIE CAMARA UNIT: [id number] ADM DATE: 02/05/19 AGE: 68 : 50 SEX: M ROOM/BED: D.2107 AUTHOR: TRINA,DOC PHYSICIAN: REFERRING PHYSICIAN: EPHRAIM SAMANO MD DATE OF SERVICE: 02/06/19 Discharge Plan Patient Name: CARLIE CAMARA Facility: [facility]:[place] : 1950 Planned Disposition: Home Anticipated Discharge Date: 02/06/19 Discharge Date: 02/06/2019 Expected LOS: 1 Initial Reviewer: [email or web address] Initial Review Date: 02/06/2019 Generated: 02/06/19 5:09 pm Comments DCP- Discharge Planning Updated by [email or web address]: Jourdan Ibarra on 02/06/19 3:[address] Patient Name: CARLIE CAMARA Admission Status: ER Accout number: [id number] Admission Date: 02-05-2019 : 1950 Admission Diagnosis: Attending: EPHRAIM SAMANO Current LOS: 1 Anticipated DC Date: 02-06-2019 Planned Disposition: Home Primary Insurance: MEDICARE A & B Discharge Planning Comments: CM MET WITH PT IN ROOM TO DISCUSS DISCHARGE PLANNING AND NEEDS. PT REPORTS LIVING AT HOME INDEPENDENTLY WITH HIS . PT HAS NO MEDICAL EQUIPMENT AND NO OUTSIDE SERVICES ASSISTING IN THE HOME. CM DISCUSSED AVAILABILITY OF HOME HEALTH, REHAB SERVICES AND MEDICAL EQUIPMENT. PT DENIES DISCHARGE NEEDS, REPORTS HIS WILL PICK HIM UP FOR DISCHARGE HOME. End User Consultant: Jourdan Ibarra DCPIA - Discharge Planning Initial Assessment Updated by [email or web address]: Jourdan Ibarra on 02/06/19 4:04 pm * Is the patient Alert and Oriented? Yes * How many steps to enter\exit or inside your home? 5-O / 13-I * PCP DR. ANNA * Pharmacy [facility]. * Preadmission Environment Home with Family * ADLs Independent * Equipment None * Other Equipment NO MEDICAL EQUIPMENT PROVIDER PREFERENCE * List name and contact numbers for known caregivers / representatives who currently or will assist patient after discharge: ALEX CAMARA, SPOUSE, * Verbal permission to speak to the caregivers and representatives has been obtained from the patient. Yes * Community resources currently utilized None * Please name any agencies selected above. NONE * Additional services required to return to the preadmission environment? No * Can the patient safely return to the preadmission environment? Yes * Has this patient been hospitalized within the prior 30 days at any hospital? No Last DP export: 02/06/19 3:01 p Patient Name: CARLIE CAMARA Page [phone] at 1609 All edits/amendments must be made on the electronic document DICTATION DATE: 02/06/19 160 EXHAUST AND MUFFLER FITTER: DARRIN 02/06/19 1609 RPT#: [id number] DC DATE:02/06/19 STATUS: DIS IN [facility] [address] [place] [address] END OF REPORT
== END 2019-02-06 15:34 | disposition home or self-care (01) | DRG 246 ==
LOC: D.ER 22:43 → D.M2 02-05 00:36
PROVIDERS: Family Medicine; Internal Medicine Interventional Cardiology; ADMIT Internal Medicine Nephrology; ATTEND Internal Medicine Nephrology
PROC: B2131ZZ Fluoroscopy of Multiple Coronary Artery Bypass Grafts using Low Osmolar Contrast (ICD-10-PCS; 2019-02-06)
PROC: B2111ZZ Fluoroscopy of Multiple Coronary Arteries using Low Osmolar Contrast (ICD-10-PCS; 2019-02-06)
PROC: B2151ZZ Fluoroscopy of Left Heart using Low Osmolar Contrast (ICD-10-PCS; 2019-02-06)
PROC: B2181ZZ Fluoroscopy of Left Internal Mammary Bypass Graft using Low Osmolar Contrast (ICD-10-PCS; 2019-02-06)
PROC: 027034Z Dilation of Coronary Artery, One Artery with Drug-eluting Intraluminal Device, Percutaneous Approach (ICD-10-PCS; principal; 2019-02-06 08:45)
PROC: 4A023N7 Measurement of Cardiac Sampling and Pressure, Left Heart, Percutaneous Approach (ICD-10-PCS; 2019-02-06 08:45)
DX: I21.4 Non-ST elevation (NSTEMI) myocardial infarction (principal); J18.9 Pneumonia, unspecified organism; I10 Essential (primary) hypertension; I25.110 Atherosclerotic heart disease of native coronary artery with unstable angina pectoris; E78.5 Hyperlipidemia, unspecified; Z98.84 Bariatric surgery status; M10.9 Gout, unspecified

== ENCOUNTER → 2019-05-31 08:19 | Outpatient (CLI) | payer MEDICARE, OTHER ==
[2019-02-05 12:59] VITALS: BMI 34.9
[~2019-05-31 08:19] MED LIST: BAYER CHEWABLE81 MG PO; CLARITIN 10 MG10 MG PO; COZAAR100 MG PO; FUROSEMIDE40 MG PO; LIPITOR20 MG PO; MELATONIN10 M1 PO; MERIBIN5 MG PO; MOBIC7.5 MG PO; MULTI-DAY VITAM1 TAB PO; NORVASC10 MG PO; PLAVIX75 MG PO; TEMAZEPAM30 MG PO; VITAMIN B-12100 MCG PO; ZYLOPRIM300 MG PO
== END | disposition home or self-care (01) ==
LOC: D.CT 05-25 08:00
PROVIDERS: ATTEND Internal Medicine Cardiovascular Disease
DX: I71.4 Abdominal aortic aneurysm, without rupture (principal)

== ENCOUNTER 2020-01-13 17:22 | Observation (INO) | payer MEDICARE, OTHER ==
[~2020-01-13] VITALS: Ht 195.6 cm; Wt 136.6 kg
--- NOTE | ~2020-01-13 | EC ---
PATIENT:CARLIE CAMARA DATE OF SERVICE: 01/13/20 SEX: M MEDICAL RECORD: [id number] DATE OF : [birth year] LOCATION:D.M2 D.212 AGE OF PATIENT: 69 ADMISSION DATE: 01/13/20 REFERRING PHYSICIAN: INTERPRETING PHYSICIAN: REECE CABRERA MD ECHOCARDIOGRAM REPORT ECHO CHARGES 4 ECHO COMPLETE Date: 01/14/20 CLINICAL DIAGNOSIS: AFIB ECHOCARDIOGRAPHIC MEASUREMENTS (adult normal given) AC root (d.<3.7cm) 4.1 cm LV Septum d (<1.2 cm> 1.2 cm Valve Excursion 3.0 cm LV Septum (systole) 1.3 cm Left Atria (s.<4.0cm> 4.5 cm LVPW d(<1.2cm) 1.5 cm RV (d.<2.3cm) 2.6 cm LVPW (sytole) 1.6 cm LV diastole(<5.6CM) 5.9 cm MV E-F(>70mm/sec) cm LV systole 4.9 cm LVOT Diameter 2.8 cm MV exc.(>10mm) cm Est.ejection fraction (50-75%) % DOPPLER: LVIT cm/sec A 72 cm/sec E 46 cm/sec LA cm/sec RVSP 22.9 mmHg LVOT 102 cm/sec AOP1/2T m/s Asc. Ao 141 cm/sec RVOT 68 cm/sec RA cm/sec PA 64 cm/sec AV Gradient Peak 8.0 mmHg AV Mean 4.5 mmHg AV Area 3.5 cm MV Gradient Peak 4.4 mmHg MV Mean 2.2 mmHg MV Area cm COMMENTS: Child Development Professor: Elizabet DALEY Lead Java Software Engineer: 4 Dr. Cabrera TAPE# PACS Pericardial Effusion N DATE OF SERVICE: PROCEDURE: Transthoracic echocardiogram. FINDINGS: 1. Left ventricle shows hypertrophy and mild global hypokinesis. Ejection fraction 45% to 50%. 2. Left atrium is mildly dilated at 4.5 cm. 3. Aortic valve appears to be normal with maybe trace aortic insufficiency. 4. The mitral valve has mild mitral regurgitation. ECHOCARDIOGRAM REPORT [id number] CARLIE CAMARA 5. Tricuspid valve has mild tricuspid regurgitation. RVSP is normal. 6. Right ventricle is normal size, shape, structure, and function. 7. Right atrium is mildly enlarged. 8. Pulmonic valve is not well visualized. 9. Pericardium is normal. TRANSINT:[id number] Voice Confirmation ID: [id number] DOCUMENT ID: [id number] REECE CABRERA MD CC: [id number] DICTATION DATE: 01/14/201724 OSTEOPATHIC RESIDENT: 01/14/20 183 DIS IN 01/14/20 [facility] [address] [place] [id number]
[2020-01-13 17:59] LABS: BASOPHILS 0.3 % (0-2); EOSINOPHILS 3.9 % (0-7); HEMATOCRIT 43.1 % (42.0-54.0); HEMOGLOBIN 14.4 g/dL (13.5-17.5); IMMATURE GRANULOCYTES 0.3 % (0-5); LYMPHOCYTES 19.9 % (15-50); MCHC 33.4 g/dL (31.0-37.0); MCV 92.9 fL (80.0-100.0); MEAN PLATELET VOLUME 10.8 fL (7.4-10.4); MONOCYTES 10.5 % (2-11); NEUTROPHILS 65.1 % (40-80); RBC 4.64 10x6/uL (4.20-6.10); RDW 12.9 % (11.5-14.5); WBC 11.7 10x3/uL (4.8-10.8)
[2020-01-13 18:00] LABS: PLATELET COUNT 169 10x3/uL (130-400)
[2020-01-13 18:15] LABS: CALC OSMOLALITY 278 mosm/kg (275-300); CALCIUM 8.6 mg/dL (8.5-10.1); CARBON DIOXIDE 32.8 mmol/L (21.0-32.0); CHLORIDE - SERUM 102 mmol/L (98-107); CREATININE - SERUM 1.2 mg/dL (0.6-1.3); GLUCOSE 146 mg/dL (74-106); POTASSIUM - SERUM 3.9 mmol/L (3.5-5.1); SODIUM 137 mmol/L (136-145); UREA NITROGEN 18 mg/dL (7-18); eGFR NON AFRICAN AMERICAN 64 mL/min (90-120)
[2020-01-13 18:31] VITALS: BP 125/75
[2020-01-13 18:36] LABS: ALBUMIN 4.1 g/dL (3.4-5.0); ALKALINE PHOSPHATASE 68 U/L (30-120); ALT (SGPT) 37 U/L (10-68); BILIRUBIN - TOTAL 0.36 mg/dL (0.2-1.3); CKMB 3.8 U/L (0.0-3.6); CREATINE KINASE 222 UL (21-232); PROTEIN - SERUM 7.6 g/dL (6.4-8.2)
[2020-01-13 18:37] LABS: TROPONIN-I < 0.017 ng/mL (0.000-0.060)
[2020-01-13 20:00] VITALS: BP 135/94
--- NOTE | 2020-01-13 20:46 | NUR ---
NS BOLUS STARTED AT 2015 FINISHED AT 2045. 500ML INFUSED.
[2020-01-13 20:59] LABS: APTT 28.8 SECONDS (22.8-39.4); INR 0.98 (0.85-1.17); PROTIME 12.9 SECONDS (11.6-15.0)
[2020-01-13 21:00] LABS: D-DIMER-QUANTITATIVE 0.28 ug/mLFEU (0.20-0.54)
[2020-01-13 21:45] VITALS: BP 136/76
--- NOTE | 2020-01-13 21:55 | NUR ---
PT ARRIVED VIA STRETCHER FROM ER. NO DISTRESS NOTED.
[2020-01-13 22:10] VITALS: BP 135/94; BMI 35.7
--- NOTE | 2020-01-13 23:14 | NUR ---
PT TOOK OWN HOME MEDS UPON ARRIVAL TO . AT BEDSIDE. ADMISSION ASSESSMENT, HISTORY AND HOME MED LIST COMPLETED BY 225 HRS. VSS. CAF PER CM HR 81. ALERT AND ORIENTED TO PERSON, PLACE AND TIME. URRUTIA. IV TO RFA WITHNS AT 50CC/HR. IV PATENT. LUNGS CTA. PALPABLE PERIPHERAL PULSES. PT CURRENTLY RESTING WITH EYES CLOSED. RESP EVEN AND REGULAR. CALL LIGHT WITHIN REACH AND AT BEDSIDE.
[2020-01-14] VITALS: BP 114/65
--- NOTE | 2020-01-14 00:52 | NUR ---
PT RESTING WITH EYES CLOSED. RESP EVEN AND REGULAR. CALL LIGHT WITHIN REACH.
--- NOTE | 2020-01-14 05:00 | NUR ---
PT AWKAE; DENIES ANY DISCOMFORT. AT BEDSIDE.
[2020-01-14 06:04] LABS: BASOPHILS 0.4 % (0-2); EOSINOPHILS 6.1 % (0-7); HEMATOCRIT 41.2 % (42.0-54.0); HEMOGLOBIN 13.7 g/dL (13.5-17.5); IMMATURE GRANULOCYTES 0.3 % (0-5); LYMPHOCYTES 23.3 % (15-50); MCH 31.2 pg (26.0-34.0); MCHC 33.3 g/dL (31.0-37.0); MCV 93.8 fL (80.0-100.0); NEUTROPHILS 55.9 % (40-80); PLATELET COUNT 160 10x3/uL (130-400); RBC 4.39 10x6/uL (4.20-6.10)
[2020-01-14 06:21] LABS: WBC 7.4 10x3/uL (4.8-10.8)
--- NOTE | 2020-01-14 06:33 | NUR ---
VSS THROUGHOUT NIGHT. CAF PER CM. PT DENIED ANY DISCOMFORT. NEEDS MET; WILL CONTINUE TO MONITOR.
--- NOTE | 2020-01-14 06:35 | NUR ---
PT STATED MORPHINE CONTROLLED HIS CHRONIC CHEST PAIN.. RESTED WELL DURING SHIFT. NEEDS MET; WILL CONTINUE TO MONITOR.
[2020-01-14 06:47] LABS: CALC OSMOLALITY 283 mosm/kg (275-300); CALCIUM 8.2 mg/dL (8.5-10.1); CARBON DIOXIDE 28.8 mmol/L (21.0-32.0); CHLORIDE - SERUM 106 mmol/L (98-107); GLUCOSE 132 mg/dL (74-106); MAGNESIUM - SERUM 2.4 mg/dL (1.8-2.4); POTASSIUM - SERUM 3.9 mmol/L (3.5-5.1); SODIUM 141 mmol/L (136-145); TROPONIN-I < 0.017 ng/mL (0.000-0.060); UREA NITROGEN 14 mg/dL (7-18); eGFR NON AFRICAN AMERICAN 79 mL/min (90-120)
[2020-01-14 09:44] VITALS: BP 160/90
[2020-01-14 12:04] VITALS: Ht 195.6 cm; Wt 136.6 kg
[2020-01-14] MEDS ORDERED: ELIQUIS5 MG PO (12:33)
[2020-01-14] MEDS ORDERED: METOPROLOL TART50 MG PO (12:33)
--- NOTE | 2020-01-14 13:24 | NUR ---
PROVIDED VERBAL AND WRITTEN DISCHARGE TEACHING, PT VERBALIZED UNDERSTANDING REGARDING TEACHING. D/C RT FA IV WITH CATHETER TIP INTACT. HEART MONITOR REMOVED AND TAKEN TO CLEAN RICE GRADER AND REEL TENDER. PT STATED THAT DR. CABRERA WANTED TO READ HIS ECHO BEFORE PT WAS DISCHARGED. WILL WAIT ON RESULTS FROM ECHO.
[2020-01-14 13:38] VITALS: BP 139/79
--- NOTE | 2020-01-14 13:52 | NUR ---
4MG OF MORPHINE GIVEN FOR PAIN LEVEL OF 7/10. PT DENIES ANY OTHER NEEDS AT THIS TIME. CALL LIGHT IN REACH, NAD NOTED, WILL CONTINUE TO MONITOR.
--- NOTE | 2020-01-14 14:12 | NUR ---
NOTIFIED BY PT THAT HIS INSURANCE WILL NOT PAY FOR THE ELIQUIS, THAT IT WILL COST THEM 400 DOLLARS PER MONTH. WANTING TO KNOW IF HE CAN GET DIFFERENT PRESCRIPTION. NOTIFIED DR. CABRERA AND ROD YOUSSEF APRN. Chantel YOUSSEF SAID SHE WILL CALL DANIEL IN [place]. PT WHEELED OUT TO ER ENTRANCE WITH ALL BELONGINGS, ACCOMPANIED BY , NAD NOTED.
[2020-01-14] MEDS ORDERED: XARELTO20 MG PO (15:08)
== END 2020-01-14 15:15 | disposition home or self-care (01) ==
LOC: D.ER 17:22 → OBSVTIME 20:03 → D.M2 20:03
PROVIDERS: Family Medicine; ADMIT Family Medicine; ATTEND Family Medicine
DX: I48.91 Unspecified atrial fibrillation (principal); I25.10 Atherosclerotic heart disease of native coronary artery without angina pectoris; I10 Essential (primary) hypertension; E78.5 Hyperlipidemia, unspecified; Z98.84 Bariatric surgery status; Z95.1 Presence of aortocoronary bypass graft; M10.9 Gout, unspecified

== ENCOUNTER → 2020-01-23 09:03 | Outpatient (CLI) | payer MEDICARE, OTHER ==
[2020-01-14 12:04] VITALS: BMI 35.7
[~2020-01-23 09:03] MED LIST changes: +ELIQUIS5 MG PO; +METOPROLOL TART50 MG PO; +XARELTO20 MG PO
== END | disposition home or self-care (01) ==
LOC: D.HCCARDIO 09:00
PROVIDERS: ATTEND Internal Medicine Cardiovascular Disease
DX: I25.10 Atherosclerotic heart disease of native coronary artery without angina pectoris (principal)

== ENCOUNTER 2020-02-14 11:42 | Outpatient (CLI) | payer MEDICARE, OTHER ==
[~2020-02-14] VITALS: Ht 195.6 cm; Wt 136.4 kg
--- NOTE | ~2020-02-14 | HEMODYNAMI ---
PATIENT:CARLIE CAMARA MEDICAL RECORD: [id number] : 50 LOCATION:[facility] ADMISSION DATE: 02/14/20 Generatedon:02/14/202015:05 Patient name: CARLIE CAMARA Patient #: [id number] SSN: DO B: 1950 Date of study: 02/14/2020 Page: Of Hemodynamic Procedure Report Patient Data Patient Demographics Procedure consent was obtained First Name: CARLIE Gender: Male Last Name: JAX : 1950 Middle Initial: M Age: 69 year(s) Patient #: [id number] Race: Additional ID: [id number] Contact details Address: [address] [place] [address] lane State: [place] City: [place] Zip code: [address] Past Medical History Allergies Allergen Reaction Date Comments Reported Sulfa drugs 02/06/2019 Antibiotics 02/06/2019 Admission Admission Data Admission Date: 02/14/2020 Admission Time: 11:42 Insurance Payor: Medicare Height (in.): 77 BSA: 2.66 (m2) Height (cm.): 195.58 BMI: 35.57 (kg/m2) Weight (lbs.): 300 Weight (kg.): 136.08 Lab Results Lab Result Date: 02/14/2020 Lab Result Time: 0:00 Biochemistry Name Units Result Min Max BUN mg/dl 14 --(--*-)-- 7 18 Creatinine mg/dl 0.9 --(-*--)-- 0.6 1.3 Procedure Procedure Types Cath Procedure Diagnostic Procedure LHC LHC w/Coronaries w/Grafts Procedure Description Procedure Date Procedure Date: 02/14/2020 Procedure Start Time: 14:32 Procedure End Time: 15:02 Procedure Staff Name Function Mihir Gaines MD Performing Physician Dario Nice RT Monitor Clau Singh RT Scrub Mitul Felix RN Nurse Procedure Data Cath Procedure Fluoroscopy Diagnostic fluoroscopy Total fluoroscopy Time: 7 time: 7 min min Diagnostic fluoroscopy Total fluoroscopy dose: dose: 1832 mGy 1832 mGy Contrast Material Contrast Material Type Amount (ml) Isovue 300 161 Entry Location Entry Primary Successful Side Size Upsize Upsize Entry Closure Succes sful Closure Location (Fr) 1 (Fr) 2 (Fr) Remarks Device Remarks Femoral Right 5 Fr Exoseal artery Estimated blood loss: 10 ml Diagnostic catheters Device Type Used For End Catheter Placement MULTIPACK JL 4.0 5Fr Procedure catheter MULTIPACK 3DRC 5Fr Procedure catheter DIAGNOSTIC AR MOD 5Fr Procedure Catheter ([id number]) DIAGNOSTIC IM 5Fr Procedure catheter ([id number]) MULTIPACK Pigtail 5 Fr Procedure catheter DIAGNOSTIC AR MOD 5Fr Procedure Catheter ([id number]) DIAGNOSTIC AR2 MOD 5 Fr Procedure catheter ([id number]) Procedure Medications Medication Administration Route Dosage Oxygen etCO2 Nasal cannula 2 l/min Lidocaine 2% added to field 20 Heparin Flush Bag added to field 2 bags (1000units/500ml NS) 0.9% NaCl I.V. 100 ml/hr Versed I.V. 2 mg Fentanyl I.V. 100 mcg Versed I.V. 1 mg Versed I.V. 1 mg Hemodynamics Rest BSA: 2.66 (m2) O2 Consumption: Estimated: 292.43 (ml/min) O2 Consumption indexed : Estimated:109.94 (ml/min/m) Heart Rate: 54 (bpm) Pressure Samples Time Site Value (mmHg) Purpose Heart Use Rate(bpm) 14:48 AO 138/20(59) Snapshot 86 Snapshots Pre Cath Intra NCS Post Cath Vital Signs Time Heart Resp SPO2 etCO2 NIBP (mmHg) Rhythm Pain Sedation Rate (ipm) (%) (mmHg) Status Level (bpm) 14:18:42 55 15 100 38.9 150/82(125) NSR 0 (11) 10(A) , No pain 14:22:56 56 16 100 41.9 142/77(122) NSR 0 (11) 10(A) , No pain 14:27:49 55 15 100 41.1 144/75(118) NSR 0 (11) 10(A) , No pain 14:32:05 63 17 100 42.7 147/76(119) NSR 0 (11) 10(A) , No pain 14:37:08 56 21 99 43.4 136/68(116) NSR 0 (11) 9(A) , No pain 14:42:09 57 13 99 43.4 143/76(116) NSR 0 (11) 9(A) , No pain 14:46:23 68 16 100 41.2 144/78(118) NSR 0 (11) 9(A) , No pain 14:50:39 64 16 99 41.9 127/77(111) NSR 0 (11) 9(A) , No pain 14:55:30 58 35 100 41.9 136/72(106) NSR 0 (11) 10(A) , No pain 14:59:46 61 20 100 42.7 141/75(116) NSR 0 (11) 9(A) , No pain Medications Time Medication Route Dose Verified Delivered Reason Notes Effectiveness by by 14:17:48 Oxygen etCO2 2 l/min Mihir Buffie used for Nasal Eder Felix RN procedure cannula 14:17:55 Lidocaine 2% added 20ml Mihir Mihir for local to vial Eder Gaines MD anesthetic field 14:18:00 Heparin Flush added 2 bags Mihir Mihir used for Bag to Eder Gaines MD procedure (1000units/500ml field NS) 14:18:10 0.9% NaCl I.V. 100ml/hr Mihir Buffie Per Eder eFlix RN physician 14:30:03 Fentanyl I.V. 100 mcg Mihir Buffie for Eder Felix RN sedation 14:30:57 Versed I.V. 2 mg Mihir Buffie for Eder Felix RN sedation 14:36:39 Versed I.V. 1 mg Mihir Buffie for Eder Felix RN sedation 14:44:38 Versed I.V. 1 mg Mihir Buffie for Eder Felix RN sedation Procedure Log Time Note 13:52:00 Diagnostic Cath Status : Elective 13:52:24 Procedure Status Elective Heart Cath (OP). 13:52:27 Mitul Felix RN sent for patient. Start room use. 13:52:28 Time tracking: Regular hours (M-F 7:00 - 5:00) 13:52:32 Plan of Care:Hemodynamics will remain stable., Cardiac rhythm will remain stable., Comfort level will be maintained., Respiratory function will remain adequate., Patient/ family verbilizes understanding of procedure., Procedure tolerated without complication., Recovers from procedure without complications.. 14:14:02 Informed consent obtained and on chart 14:17:39 Vital chart was started 14:17:48 Oxygen 2 l/min etCO2 Nasal cannula was administered by Mitul Felix RN; used for procedure; Verbal order read back and verified. 14:17:55 Lidocaine 2% 20ml vial added to field was administered by Mihir Gaines MD; for local anesthetic; Verbal order read back and verified. 14:18:00 Heparin Flush Bag (1000units/500ml NS) 2 bags added to field was administered by Mihir Gaines MD; used for procedure; Verbal order read back and verified. 14:18:10 0.9% NaCl 100ml/hr I.V. was administered by Mitul Felix RN; Per physician; Verbal order read back and verified. 14:19:07 Patient Height : 77 inches 14:19:18 Patient Weight : 300 lbs 14:19:38 Insurance Payor : Medicare 14:21:03 Patient received from Pre/Post Procedure Room to [facility] 2 Alert and oriented. Tansferred to table in Supine position. 14:21:05 Warm blankets applied, and louise hugger turned on for patient comfort. 14:21:06 Correct patient and procedure confirmed by team. 14:21:07 ECG and BP/O2 sat monitors applied to patient. 14:21:08 Baseline sample Acquired. 14:21:14 Rhythm: sinus bradycardia 14:21:16 Full Disclosure recording started 14:21:50 H&P Date Dictated: 01/17/2020 Within 30 days and on chart., H&P Addendum completed by physician on day of procedure. (MUST COMPLETE FOR ALL OUTPATIENTS). 14:21:52 Pre-procedure instructions explained to patient. 14:21:53 Pre-op teaching completed and patient verbalized understanding. 14:21:58 Patient NPO since Midnight. 14:22:02 Family in patients room. 14:22:05 Is the patient allergic to Iodine/contrast media? No. 14:22:26 Is patient on blood thinner?Yes 14:22:32 ACC The patient was administered the following blood thiners within the last 24 hours: Xarelto 14:23:00 LAST DOSE WEDNESDAY 14:23:14 ----Pre-sedation anethsthesia assessment.---- 14:23:18 Previous problem with sedation/anesthesia? No ? 14:23:20 Snore? Yes 14:23:22 Sleep apnea? No 14:23:23 Deviated septum? No 14:23:24 Opens mouth fully? Yes 14:23:25 Sticks out tongue? Yes 14:23:30 Airway obstruction? No ? 14:23:33 Dentures? No ? 14:23:39 Pre procedure: right dorsailis pedis pulse 2+ Normal; easily identifiable; not easily obliterated 14:: IV patent on arrival in right forearm with 0.9% NaCl at [facility]. 14:: Lab Result : BUN 14 mg/dl 14:: Lab Result : Creatinine 0.9 mg/dl 14: Lab results completed and on chart. : Right groin area was prepped with chlora-prep and draped in sterile fashion 14:29:00 Alarms reviewed by RSergio N. 14:: Sharps counted by scrub and verified by R.N. 14:: Physician arrived 14::04 --------ALL STOP TIME OUT------ 14::05 Final Timeout: patient, procedure, and site verified with staff and physician. All members of the team are in agreement. 14:29:08 Right groin site verified by team. 14:29: Fire Safety Assessment: A--An alcohol-based skin anteseptic being used preoperatively., C--Open oxygen or nitrous oxide is being used., D--An ESU, laser, or fiber-optic light is being used. 14::44 Physical assessment completed. ASA score P 2 - A patient with mild systemic disease as per Mihir Gaines MD. 14:30:01 2) 60-89 Mildly reduced kidney function, and other findings (as for stage 1) point to kidney disease. 14:30:03 Fentanyl 100 mcg I.V. was administered by Mitul Felix RN; for sedation; Verbal order read back and verified. 14:30:38 Maximum allowable contrast dose (3.7 X eGFR X 0.75)246 ml. 14:30:43 Sedation plan: IV Moderate Sedation Medication:Versed, Fentanyl 14:30:57 Versed 2 mg I.V. was administered by Mitul Felix RN; for sedation; Verbal order read back and verified. 14:31:10 Use device set Femoral Dx 14:31:12 ACIST Syringe (70610) opened to sterile field. 14:31:13 Bag Decanter (2001S) opened to sterile field. 14:31:14 Medline Cath Pack ([id number]) opened to sterile field. 14:31:16 ACIST Hand Control (95721) opened to sterile field. 14:31:17 ACIST Manifold (89802) opened to sterile field. 14:31:19 DIAGNOSTIC Multipack 5Fr catheter set (NL5803) opened to sterile field. 14:31:20 Tegaderm 4 x 4 (1626W) opened to sterile field. 14:31:22 SHEATH 5FR [place] (PRX046) opened to sterile field. 14:31:24 EMERALD Guide Wire (084-856) opened to sterile field. 14:32:36 Procedure started. 14:32:42 Local anesthetic to right femoral artery with Lidocaine 2% by Mihir Gaines MD.INITIAL ACCESS ONLY 14:35:06 A 5 Fr sheath was inserted into the Right Femoral artery 14:36:22 A MULTIPACK JL 4.0 5Fr catheter was advanced over the wire and used for Procedure. 14:36:39 Versed 1 mg I.V. was administered by Mitul Felix RN; for sedation; Verbal order read back and verified. 14:37:05 LCA angiography performed. 14:38:26 Catheter removed. 14:39:19 A MULTIPACK 3DRC 5Fr catheter was advanced over the wire and used for Procedure. 14:40:41 Catheter removed. 14:41:47 A DIAGNOSTIC AR MOD 5Fr Catheter (840506E) was advanced over the wire and used for Procedure. 14:41:56 SVG to RCA angiography performed. 14:43:56 SVG to Circ occluded. 14:44:29 Catheter removed. 14:44:38 Versed 1 mg I.V. was administered by Mitul Felix RN; for sedation; Verbal order read back and verified. 14:44:52 A DIAGNOSTIC IM 5Fr catheter (093402U) was advanced over the wire and used for Procedure. 14:46:22 TYLER to LAD angiography performed. 14:47:06 Catheter removed. 14:48:08 A MULTIPACK Pigtail 5 Fr catheter was advanced over the wire and used for Procedure. 14:48:35 LV hemodynamics recorded. 14:48:47 LV gram done using MAHMOOD 14:48:56 EF : 50 % 14:49:36 Aortic Root visualized 14:50:39 Catheter removed. 14:50:51 A DIAGNOSTIC AR MOD 5Fr Catheter ([id number]) was advanced over the wire and used for Procedure. 14:52:40 SVG to Circ angiography performed. 14:53:18 Catheter removed. 14:54:12 A DIAGNOSTIC AR2 MOD 5 Fr catheter (124018B) was advanced over the wire and used for Procedure. 14:56:06 SVG to Circ angiography performed. 14:56:17 Catheter removed. 14:56:22 EXOSEAL 5Fr (EX500) opened to sterile field. 14:56:37 Sheath removed intact; hemostasis achieved with Exoseal to the Right Femoral artery. 14:56:51 Procedure ended.(Physican Out) 14:58:16 Fluoroscopy time 07.00 minutes. 14:58:23 Fluoroscopy dose: 1832 mGy 14:58:23 Flurop Dose total: 1832 14:58:33 Dose Area Product 152 mGy/cm. 14:58:42 Contrast amount:Isovue 300 161ml. 14:58:48 Maximum allowable dose exceeded? No. 14:58:50 Sharps counted by scrub and verified by R.N. 14:59:59 Procedure type changed to Cath procedure, Diagnostic procedure, C, [facility] w/Coronaries w/Grafts 15:00:32 Insertion/operative site no bleeding no hematoma. 15:00:36 Post-op/insertion site Right Femoral artery dressed using a 4 x 4 and Tegaderm. 15:00:45 Post right femoral artery:stable 15:00:49 Post Procedure Pulses reassessed and unchanged 15:00:56 Post-procedure physical assessment completed. ASA score P 2 - A patient with mild systemic disease as per Mihir Gaines MD. 15:01:01 Post procedure rhythm: sinus rhythm 15:01:05 Estimated blood loss: 10 ml 15:01:08 Patient needs reinforcement of post procedure teaching. 15:01:09 Procedure and supply charges have been captured, reviewed, submitted and are correct. 15:02:14 Vital chart was stopped 15:02:19 [facility] Findings: mild to moderate CAD (<70%) 15:02:26 Operative report dictated upon procedure completion. 15:02:27 See physician's report for complete and final results. 15:02:30 Report given to Pre/Post Procedure Room. 15:02:41 Patient transfered to Pre/Post Procedure Room with Stretcher. 15:02:56 Procedure ended. 15:02:56 Full Disclosure recording stopped Device Usage Item Name Manufacture Quantity Catalog Hospital Part Current Minimal L ot# / Number Charge Number Stock Stock Serial# Code ACIST Acist 1 33543 027978 395196 123288 20 Syringe Medical (33210) Systems Inc Bag Microtek 1 2001S 152702 99665 465173 5 Decanter Medical Inc. () Medline Medline 1 [id number] 370566 04897 369914 5 Cath Pack ([id number]) ACIST Hand Acist 1 75832 768395 206871 961538 5 Control Medical (54496) Systems Inc ACIST Acist 1 65705 150259 981670 711409 5 Manifold Medical (81958) Systems Inc DIAGNOSTIC Cardinal 1 UM3548 207210 38688 417754 30 Multipack Health 5Fr catheter set (TN1144) Tegaderm 4 3M 1 1626W 978611 859234 419559 5 x 4 (1626W) SHEATH 5FR Terumo 1 VHG054 787564 727163 605837 5 [place] (BVF987) EMERALD Cardinal 1 502-455 543213 800989 814965 5 Guide Wire [facility] (502-455) MULTIPACK Cardinal 1 962991 5 JL 4.0 5Fr Health catheter MULTIPACK Cardinal 1 783818 5 3DRC 5Fr Health catheter DIAGNOSTIC Cardinal 1 [id number] 224134 340505 475968 15 AR MOD 5Fr Health Catheter (847941L) DIAGNOSTIC Cardinal 1 [id number] 480754 623291 975213 5 IM 5Fr Health catheter (888768N) MULTIPACK Cardinal 1 126446 5 Pigtail 5 Health Fr catheter DIAGNOSTIC Cardinal 1 347536U 477836 131059 360908 20 AR2 MOD 5 Health Fr catheter (730722R) EXOSEAL 5Fr Cardinal 1 EX500 432546 976343 261476 10 (EX500) Health Signature Audit [place] Stage Time Signature Unsigned Intra-Procedure 02/14/2020 Dario Nice 3:03:31 PM RT(R) (CV); Mitul Felix RN; Mihir Gaines MD Signatures Performing Physician : Signature : Mihir Gaines MD Date : Time : Monitor : Dario Nice RT Signature : Date : Time : Nurse : Mitul Felix RN Signature : Date : Time : [facility] [address] [place] [address]
[2020-02-14] MEDS ORDERED: BETAPACE 80 MG80 MG PO (12:39)
[2020-02-14] MEDS ORDERED: LIPITOR80 MG PO (12:40)
[2020-02-14 12:53] VITALS: BP 156/69; Ht 195.6 cm; Wt 136.4 kg
[2020-02-14 13:16] LABS: BASOPHILS 0.5 % (0-2); HEMATOCRIT 41.8 % (42.0-54.0); HEMOGLOBIN 14.3 g/dL (13.5-17.5); IMMATURE GRANULOCYTES 0.2 % (0-5); LYMPHOCYTES 20.7 % (15-50); MCH 31.5 pg (26.0-34.0); MCHC 34.2 g/dL (31.0-37.0); MCV 92.1 fL (80.0-100.0); MEAN PLATELET VOLUME 10.9 fL (7.4-10.4); NEUTROPHILS 61.6 % (40-80); PLATELET COUNT 147 10x3/uL (130-400); RBC 4.54 10x6/uL (4.20-6.10); RDW 12.5 % (11.5-14.5); WBC 8.3 10x3/uL (4.8-10.8)
[2020-02-14 13:29] LABS: ALT (SGPT) 34 U/L (10-68); CALC OSMOLALITY 282 mosm/kg (275-300); CALCIUM 9.4 mg/dL (8.5-10.1); CARBON DIOXIDE 30.5 mmol/L (21.0-32.0); CHLORIDE - SERUM 103 mmol/L (98-107); CHOL - HDL RATIO 2.7 ratio (2.3-4.9); CHOLESTEROL, TOTAL 170 mg/dL (0-200); CREATININE - SERUM 0.9 mg/dL (0.6-1.3); GLUCOSE 123 mg/dL (74-106); HDL CHOLESTEROL 62 mg/dL (32-96); LDL CHOLESTEROL 89 mg/dL (0-100); LDL-HDL RATIO 1.4 ratio (1.5-3.5); POTASSIUM - SERUM 3.9 mmol/L (3.5-5.1); SODIUM 141 mmol/L (136-145); TRIGLYCERIDE 99 mg/dL (30-200); UREA NITROGEN 14 mg/dL (7-18); eGFR NON AFRICAN AMERICAN 89 mL/min (90-120)
--- NOTE | 2020-02-14 15:15 | NUR ---
PT ARRIVED BY STRETCHER. PLACED ON MONITORS. ASSESSMENT COMPLETED. VSS AT THIS TIME. CALL LIGHT WITHIN REACH. FAMILY AT BEDSIDE.
--- NOTE | 2020-02-14 15:30 | NUR ---
RIGHT GROIN DRESSING C/D/I. NO S/S OF HEMATOMA NOTED. CALL LIGHT WITHIN REACH. FAMILY AT BEDSIDE.
--- NOTE | 2020-02-14 16:00 | NUR ---
RIGHT GROIN DRESSING C/D/I. NO S/S OF HEMATOMA NOTED. CALL LIGHT WITHIN REACH. VSS. FAMILY AT BEDSIDE.
--- NOTE | 2020-02-14 16:30 | NUR ---
HEAD OF BED INC TO 30 DEGREES. TOLERATED WELL. VSS. PT SET UP WITH SANDWICH TRAY AND DRINK. DENIES NAUSEA/PAIN. CALL LIGHT WITHIN REACH. RIGHT GROIN DRESSING C/D/I. NO S/S OF HEMATOMA NOTED.
--- NOTE | 2020-02-14 17:15 | NUR ---
RIGHT GROIN DRESSING C/D/I. NO S/S OF HEMATOMA NOTED. PIV D/C'D WITH CATH TIP INTACT. TOLERATED WELL. PT INSTRUCTED TO GET UP AND DRESSED AT THIS TIME.
--- NOTE | 2020-02-14 17:30 | NUR ---
PT AMBULATED TO RESTROOM. VOIDED WITHOUT DIFFICULTY. STEADY GAIT NOTED.
--- NOTE | 2020-02-14 17:45 | NUR ---
DISCUSSED DISCHARGE INSTRUCTIONS WITH PT AND PT'S FAMILY. THEY VOICED UNDERSTANDING.
--- NOTE | 2020-02-14 18:00 | NUR ---
RIGHT GROIN DRESSING C/D/I. NO S/S OF HEMATOMA NOTED. PT TAKEN DOWN TO VEHICLE BY WHEELCHAIR. NO S/S OF DISTRESS NOTED. ALL BELONGINGS AND PAPERWORK IN HAND.
== END 2020-02-14 18:00 | disposition home or self-care (01) ==
LOC: D.CATH 11:42
PROVIDERS: ATTEND Internal Medicine Cardiovascular Disease
DX: I25.119 Atherosclerotic heart disease of native coronary artery with unspecified angina pectoris (principal); R94.39 Abnormal result of other cardiovascular function study; E78.5 Hyperlipidemia, unspecified; I10 Essential (primary) hypertension; R42 Dizziness and giddiness; I48.91 Unspecified atrial fibrillation; I35.1 Nonrheumatic aortic (valve) insufficiency; I71.2 Thoracic aortic aneurysm, without rupture; R06.09 Other forms of dyspnea

== ENCOUNTER 2020-04-30 09:30 | Day surgery (SDC) | payer MEDICARE, OTHER ==
[~2020-04-30] VITALS: Ht 195.6 cm; Wt 127.0 kg
[~2020-04-30 09:30] MED LIST changes: +BETAPACE 80 MG80 MG PO; +LIPITOR80 MG PO
[2020-04-30 09:50] LABS: BASOPHILS 0.4 % (0-2); EOSINOPHILS 5.4 % (0-7); HEMATOCRIT 42.3 % (42.0-54.0); HEMOGLOBIN 14.1 g/dL (13.5-17.5); IMMATURE GRANULOCYTES 0.2 % (0-5); LYMPHOCYTES 17.6 % (15-50); MCH 30.7 pg (26.0-34.0); MCHC 33.3 g/dL (31.0-37.0); MEAN PLATELET VOLUME 10.4 fL (7.4-10.4); MONOCYTES 11.5 % (2-11); NEUTROPHILS 64.9 % (40-80); PLATELET COUNT 167 10x3/uL (130-400); WBC 9.3 10x3/uL (4.8-10.8)
[2020-04-30 10:00] LABS: CALC OSMOLALITY 283 mosm/kg (275-300); CALCIUM 8.9 mg/dL (8.5-10.1); CARBON DIOXIDE 33.7 mmol/L (21.0-32.0); CHLORIDE - SERUM 104 mmol/L (98-107); GLUCOSE 145 mg/dL (74-106); POTASSIUM - SERUM 4.1 mmol/L (3.5-5.1); SODIUM 141 mmol/L (136-145); UREA NITROGEN 12 mg/dL (7-18); eGFR NON AFRICAN AMERICAN 79 mL/min (90-120)
[2020-04-30 10:38] VITALS: BP 148/73; Ht 195.6 cm; Wt 127.0 kg
[2020-04-30] MEDS ORDERED: HYDROCODON-ACE1 EAC7 PO (13:57)
== END 2020-04-30 15:10 | disposition home or self-care (01) ==
LOC: D.OPS 09:30
PROVIDERS: Anesthesiology; ATTEND Podiatrist Foot & Ankle Surgery
DX: M20.5X1 Other deformities of toe(s) (acquired), right foot (principal); M20.11 Hallux valgus (acquired), right foot; I10 Essential (primary) hypertension